=== PATIENT | male | born 1940 | race Caucasian/White ===

== ENCOUNTER 2021-01-20 14:01 | Emergency (ER) | payer OTHER, MEDICARE ==
[~2021-01-20] VITALS: Ht 177.8 cm; Wt 59.9 kg
[2021-01-20 15:29] VITALS: BP 186/82
[2021-01-20] MEDS ORDERED: HYDROcodone/acetaminophen 5mg/325mg tablet PO ONE (18:45)
[2021-01-20] MEDS ORDERED: ibuprofen 200mg tablet PO ONE (18:50)
[2021-01-20] MEDS ORDERED: HYDR-3964 PO (18:51)
[2021-01-20] MEDS ORDERED: LIDO700A32 TOP (18:52)
[2021-01-20] MEDS ORDERED: CYCL-394 PO (18:53)
== END 2021-01-20 19:00 | disposition home or self-care (01) ==
LOC: ER 14:02
DX: S22.31XA Fracture of one rib, right side, initial encounter for closed fracture (principal); R07.81 Pleurodynia; E78.00 Pure hypercholesterolemia, unspecified; I10 Essential (primary) hypertension; G89.29 Other chronic pain; Z79.899 Other long term (current) drug therapy; W19.XXXA Unspecified fall, initial encounter; Y93.89 Activity, other specified; Y92.89 Other specified places as the place of occurrence of the external cause; Y99.8 Other external cause status
CPT/HCPCS: 71100; 99283

== ENCOUNTER 2023-02-03 10:23 | Emergency (ER) | payer OTHER, MEDICARE ==
[~2023-02-03] VITALS: Ht 177.8 cm; Wt 72.6 kg
[~2023-02-03 10:23] MED LIST: LIDO700A32 TOP
[2023-02-03] MEDS ORDERED: FLUT16SP2 BOTHNARES (11:08)
[2023-02-03] MEDS ORDERED: AMOX-117 PO (11:08)
[2023-02-03] MEDS ORDERED: PRED10TA23 PO (11:09)
[2023-02-03 11:32] VITALS: BP 149/78; PULSE 61; RESP 16; TEMP 98.2; O2SAT 98
== END 2023-02-03 11:38 | disposition home or self-care (01) ==
LOC: ER 10:24
DX: J01.10 Acute frontal sinusitis, unspecified (principal); E78.00 Pure hypercholesterolemia, unspecified; I10 Essential (primary) hypertension; G89.29 Other chronic pain; Z79.2 Long term (current) use of antibiotics; Z79.899 Other long term (current) drug therapy
CPT/HCPCS: 99283